=== PATIENT | female | born 1960 | race Caucasian/White ===

== ENCOUNTER → 2020-04-19 16:14 | Outpatient (CLI) | payer MEDICAID, SELFPAY ==
[2020-04-19 16:58] LABS: Basophils % 0.6 % (0.1-2.0); Eosinophils # 0.1 K/mm3 (0.0-0.4); Eosinophils % 1.4 % (0.1-12.0); Hemoglobin 14.7 g/dL (12.2-16.2); Lymphocytes # 2.4 K/mm3 (0.7-4.5); Lymphocytes % 32.9 % (10-50); Mean Corpuscular HGB Conc 32.6 g/dL (31.8-35.4); Mean Corpuscular Hemoglobin 33.6 pg (27.0-31.2); Mean Corpuscular Volume 103.3 fl (81-99); Mean Platelet Volume 8.8 fl (7.4-10.4); Monocytes # 0.3 K/mm3 (0.1-1.0); Monocytes % 4.3 % (1.7-9.3); Neutrophils # 4.5 K/mm3 (1.8-7.8); Neutrophils % 60.7 % (37.0-80.0); Platelet Count 297 K/mm3 (142-424); Red Blood Count 4.36 M/mm3 (4.20-5.40); Red Cell Distribution Width 13.7 % (11.5-17.5); White Blood Count 7.4 K/mm3 (4.8-10.8)
[2020-04-19 17:06] LABS: Alanine Aminotransferase 25 U/L (12-78); Albumin Level 4.4 g/dl (3.5-5.0); Albumin/Globulin Ratio 1.5 (1.1-1.8); Alkaline Phosphatase 70 U/L (38-126); Anion Gap 12.7 mEq/L (5-15); Aspartate Amino Transferase 34 U/L (14-36); Bilirubin,Total 0.6 mg/dl (0.2-1.3); Blood Urea Nitrogen 20 mg/dl (7-17); Calcium 9.6 mg/dl (8.4-10.2); Carbon Dioxide 24 mmol/L (22.0-30.0); Chloride 104 mmol/L (98-107); Chol/HDL Ratio 2.7 (1-3.5); Cholesterol 215 mg/dl (140-200); Estimated Glomerular Filt Rate 73 ml/min (>60); GFR (African American) 89 ML/MIN (>60); Globulin 2.9 g/dL (1.3-3.2); Glucose 94 mg/dl (74-100); HDL Cholesterol 79 mg/dl (40-60); Potassium 4.7 mmoL/L (3.5-5.1); Sodium 136 mmol/L (136-145); Total Protein,Serum 7.3 g/dl (6.3-8.2); Triglycerides 69 mg/dl (30-150); Uric Acid 5.3 mg/dl (2.5-6.2); VLDL Cholesterol 14 mg/dL (0-40)
[2020-04-19 17:13] LABS: 25-OH Vitamin D, Total 37.3 ng/mL (30-100)
[2020-04-19 17:17] LABS: C-Reactive Protein 1.1 mg/L (0-4); Direct LDL Cholesterol 111.66 mg/dL (100-129)
[2020-04-19 18:44] LABS: Erythrocyte Sedimentation Rate 13 mm/hr (0-30)
[2020-04-19 19:14] LABS: T4 (Thyroxine) 3.4 ug/dl (5.53-11.0)
[2020-04-21 14:17] LABS: Anti-Centromere B Antibodies <0.2 AI (0.0-0.9); Anti-Jo-1 <0.2 AI (0.0-0.9); Anti-Smith Antibody <0.2 AI (0.0-0.9); Antichromatin Antibodies <0.2 AI (0.0-0.9); Antiscleroderma-70 Antibodies <0.2 AI (0.0-0.9); RNP Antibodies <0.2 AI (0.0-0.9); Sjogren's Anti-SS-A <0.2 AI (0.0-0.9); Sjogren's Anti-SS-B <0.2 AI (0.0-0.9)
[2020-04-22 18:37] LABS: Anti-DNA (DS) Ab Qn 1 IU/mL (0-9); RA Latex Turbid. 37.5 IU/mL (0.0-13.9)
[2020-04-24 13:21] LABS: Antinuclear Antibodies, IFA Negative (.)
== END ==
PROVIDERS: Visit Provider Nurse Practitioner Family
DX: Z00.00 Encounter for general adult medical examination without abnormal findings (principal); M06.9 Rheumatoid arthritis, unspecified; R53.83 Other fatigue
CPT/HCPCS: 80053; 80061; 82306; 84436; 84443; 84550; 85025; 85651; 86038; 86140; 86225; 86235; 86431

== ENCOUNTER → 2020-05-05 12:50 | Outpatient (POV) | payer MEDICAID, SELFPAY ==
[2020-05-05 13:19] VITALS: BP 121/85; PULSE 92; RESP 18; O2SAT 98; BMI 25.7
--- NOTE | 2020-05-05 15:57 | HMH.PMCON ---
Assessment and Plan (1) Low back pain Status: Acute Category: Medical Code(s): M54.5 - Low back pain (2) Lumbar radiculopathy Status: Acute Category: Medical Code(s): M54.16 - Radiculopathy, lumbar region - Assessment and plan all Dx Assessment and Plan for all problems:: We will move forward with getting an MRI for the patient. I do believe she may be a candidate for interventional treatment however I do feel the need to review pathology prior to making that plan of care. I will follow-up with her after her MRI reassess her symptoms at that time she has been instructed to call the office if she has any issues prior to her next appointment. Dr. Reina has reviewed this note and agrees with this plan of care. This note was dictated using voice recognition software and may contain errors or omissions HPI - Data of Consult Consult date: 05/05/20 Requesting Physician: Alisia Ramon APRN Primary Care Provider: Christopher Fountain MD - Consult Narrative Reason for consult: Back pain History of present illness: Ms. Kirk is a 59 year old female who presents today for consultation regards to her low back and bilateral lower extremity pain. Patient states all activity increases it well nothing decreases it. Patient states she broke her back back in the 80s. Patient rates her pain an 8 out of 10. She has no recent imaging of her low back. She states that she has numbness in her legs. Patient has completed physical therapy with no long-term relief she is tried medication therapy with no relief. Patient and I discussed moving forward with diagnostic imaging she is agreeable. CC: Alisia Ramon APRN [facility] History I have reviewed the patient's past medical history: Yes Medical History: Denies:: Cancer, Diabetes Mellitus Type 1, Diabetes Mellitus Type 2, MRSA *Have you ever received a pneumonia vaccine?: Yes *Have you received a flu vaccine this season?: Yes Other Medical History: Reports: Arthritis, Thyroid Disease Amputation: No Fractures: No - *Social History Smoking Status: Never smoker Alcohol Intake: never Alcohol Intake Frequency:: holidays/special occasions only Substance Use Type: denies use *Occupational Status:: retired Housing: house Household Members: other *Travel in the last 8 weeks: None Family Hx:: Unable to obtain Review of Systems - Review of Systems ROS General: no recent weight change, no fever, no sleep disturbances Respiratory: no cough, no shortness of air, no recurring pulmonary infections Cardiovascular/Peripheral Vascular: No chest pain, No palpitations, no edema, no shortness of breath. Gastrointestinal: no new onset incontinence, normal bowel movements reported Genitourinary: no new onset incontinence Musculoskeletal: Back pain, leg pain Psychiatric: normal mood/ affect Neurological: [denies new onset weakness in extremities], [denies new onset balance issues] Meds Home Medications Medication Instructions Recorded Confirmed Type ibuprofen 200 mg capsule 800 mg PO TID PRN cap 04/19/20 04/19/20 History magnesium oxide 400 mg (241.3 mg 400 mg PO DAILY 04/19/20 04/19/20 History magnesium) tablet prednisolone sod phos 1 drp OPHTHALMIC 04/19/20 04/19/20 History %-moxifloxacin 0.5 %-bromfen 0.075 % eye drops levothyroxine 25 mcg capsule 25 mcg PO DAILY #30 cap 04/22/20 Rx Allergies Allergy/AdvReac Type Severity Reaction Status Date / Time No Known Allergies Allergy Verified 04/19/20 10:14 Objective Vital signs: Pulse Resp BP Pulse Ox 92 H 18 121/85 98 05/05/20 13:19 05/05/20 13:19 05/05/20 13:19 05/05/20 13:19 Narrative: Physical Exam General: Alert and oriented x3, no acute distress, pleasant and cooperative, [on room air] Lungs: Resps E/U, Symmetrical chest expansion, Eyes: PERRL Musculoskeletal: Flexion and extension of lumbar spine somewhat guarded secondary to pain, deep tendon refle
== END ==
PROVIDERS: PCP Emergency Medicine; Visit Provider Clinical Nurse Specialist Family Health
DX: M54.5 Low back pain (principal); M54.16 Radiculopathy, lumbar region
CPT/HCPCS: 99202; G0463

== ENCOUNTER 2020-05-05 14:04 | Outpatient (RCR) | payer MEDICAID, SELFPAY ==
--- NOTE | 2020-05-05 15:20 | HMH.PTOPEV ---
PT Outpatient Evaluation Rehab PT Outpatient Evaluation Start: 05/05/20 14:07 Freq: Status: Active Protocol: Document 05/05/20 15:01 AALIYAH (Rec: 05/05/20 15:20 AALIYAH [id number]) Electronically Signed By Jude Rodriguez, PT 05/05/20 15:01 Outpatient Therapy Subjective History Subjective History Patient is a 59 year old female presenting to outpatient PT with reports of sub-acute R shoulder pain as a result of a fall at work. Patient reports that she is scheduled to have an MRI soon. Symptom onset starting approximately 1.5 months ago. No recent imaging to report. Comorbidities include hx of hypothyroidism, lumbar spine fracture, B tibial fracutre and humeral fractures. Chief Complaint Pain,Stiff,Weakness Symptom Type Burning Symptoms Relieved By OTC Meds Symptoms Aggravated By Physical Activity,Lifting Prior Functional Limitations None Current Functional Limitations Reaching,Lifting,Housework, Sleeping Symptom Description Constant but Variable Level of pain today (0-10) 8 Pain scale - at its best (0-10) 5 Pain scale - at its worst (0-10) 9 Shoulder/Elbow Eval Shoulder Objective Measurements Palpation Tenderness Shoulder Palpation Findings Tenderness Shoulder Palpation Overall Comment R posterior cuff/ACJ 3/4 Posture Shoulder Posture Sitting Position (R) Rounded,(L) Forward Shoulder Posture Standing Position (R) Rounded,(L) Forward Scapula Posture Sitting Position (L) Protracted,(R) Protracted Scapular Posture Standing Position (L) Protracted,(R) Protracted Shoulder ROM Right Shoulder Abduction Passive Range of 149 Motion (degrees) Shoulder Flexion Passive Range of Motion 125 (degrees) Shoulder External Rotation Passive Range 85 of Motion (degrees) Shoulder Internal Rotation Passive Range 40 of Motion (degrees) Left full ROM shoulder exam standard left Shoulder MMT Right Shoulder Abduction Strength Grade 4- Good- Shoulder Extension Strength Grade 4- Good- Shoulder Flexion Strength Grade 4- Good- Shoulder External Rotation Strength 4- Good- Grade Shoulder Internal Rotation Strength 4- Good- Grade Elbow Objective Measurements Outpatient Therapy Assessment Impairments Problems/Impairmments Palpation Tenderness,Impaired Range of Motion,Impaired
== END 2020-05-05 14:10 | disposition home or self-care (01) ==
LOC: PT 14:04
PROVIDERS: PCP Nurse Practitioner Family; Visit Provider Nurse Practitioner Family
DX: M25.511 Pain in right shoulder (principal)
CPT/HCPCS: 97163

== ENCOUNTER → 2021-03-17 16:37 | Outpatient (CLI) | payer MEDICAID, SELFPAY ==
[2021-03-20 10:23] LABS: Adenovirus,PCR Not Detected (NotDetected); Bordetella Pertussis Not Detected (NotDetected); Chlamydophila Pneumoniae, PCR Not Detected (NotDetected); Coronavirus 229E Not Detected (NotDetected); Coronavirus NL63 Not Detected (NotDetected); Coronavirus OC43 Not Detected (NotDetected); Coronovirus HKU1,PCR Not Detected (NotDetected); Human Metapneumovirus Not Detected (NotDetected); Influenza A, PCR Not Detected (NotDetected); Influenza AH1, 2009 Not Detected (NotDetected); Influenza AH1, PCR Not Detected (NotDetected); Influenza AH3,PCR Not Detected (NotDetected); Influenza B, PCR Not Detected (NotDetected); Mycoplasma Pneumoniae, PCR Not Detected (NotDetected); Parainfluenza 1, PCR Not Detected (NotDetected); Parainfluenza 2, PCR Not Detected (NotDetected); Parainfluenza 3, PCR Not Detected (NotDetected); Parainfluenza 4, PCR Not Detected (NotDetected); Respiratory Syncytial Virus Not Detected (NotDetected); Rhinovirus/Enterovirus Not Detected (NotDetected)
[2021-03-20 12:01] LABS: Coronavirus 19, PCR Detected (NotDetected)
== END ==
PROVIDERS: Visit Provider Nurse Practitioner Family
DX: U07.1 COVID-19 (principal); R05.9 Cough, unspecified
CPT/HCPCS: 87581; 87632; 87798; C9803; U0003; U0005

== ENCOUNTER → 2021-05-18 13:19 | Outpatient (CLI) | payer MEDICAID, SELFPAY ==
--- NOTE | 2021-05-18 13:22 | MR_ITS ---
FINAL REPORT CLINICAL HISTORY: Ongoing neck pain, BUE numbness. POPPING IN NECK. BROKE BACK X30YRS AGO, NUMBNESS AND TINGLING. BACK SURGERY 28YRS AGO. FINDINGS: Multi planar MR imaging was obtained of the cervical spine. There is abnormal decreased signal throughout the cervical discs. There is moderate disc space narrowing at C5-6 and C6-7. The vertebrae are of normal height. There is no malalignment. The cervical cord demonstrates normal signal and configuration. C2-C3: There is no evidence of significant disc bulge or protrusion. There is no significant facet hypertrophy. C3-C4: Mild diffuse disc bulge is present with mild bilateral neural foraminal narrowing. C4-C5: Mild diffuse disc bulge is present with mild bilateral neural foraminal narrowing. C5-C6: Moderate diffuse disc bulge is present, slightly eccentric to the right. There is moderate right neural foraminal narrowing. There is mild to moderate compromise of the right side of the spinal canal. C6-C7: Moderate diffuse disc bulge is present. There is mild to moderate bilateral neural foraminal narrowing. C7-T1: Mild diffuse disc bulge is present with mild bilateral neural foraminal narrowing. IMPRESSION: Multilevel diffuse disc bulges, most evident at C5-6 with mild to moderate compromise of the right-sided spinal canal. Reviewed, Interpreted and Dictated by Teofilo Rivera MD Transcribed by Chantal Martin Authenticated by Teofilo Rivera MD on 05/18/2021 03:58:47 PM [facility]
== END ==
PROVIDERS: PCP Nurse Practitioner Family; Visit Provider Nurse Practitioner Family
DX: M54.2 Cervicalgia (principal)
CPT/HCPCS: 72141; 76376

== ENCOUNTER → 2021-07-31 10:52 | Outpatient (POV) | payer MEDICAID, SELFPAY ==
[2021-07-31 11:36] VITALS: BP 146/96; PULSE 86; RESP 18; TEMP 37.1; O2SAT 100; BMI 28.3
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
== END ==
PROVIDERS: Visit Provider Student in an Organized Health Care Education/Training Program
DX: M50.10 Cervical disc disorder with radiculopathy, unspecified cervical region (principal); M54.50 Low back pain, unspecified
CPT/HCPCS: 99202; G0463

== ENCOUNTER 2021-08-11 10:48 | Day surgery (SDC) | payer MEDICAID, SELFPAY ==
[2021-08-11 10:54] VITALS: BP 117/80; PULSE 85; RESP 20; TEMP 36.7; O2SAT 97; BMI 28.3
[2021-08-11 11:21] VITALS: BP 108/85; PULSE 80; RESP 20
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
[2021-08-11 11:34] VITALS: BP 139/88; PULSE 68; RESP 18; O2SAT 98
== END 2021-08-11 11:35 | disposition home or self-care (01) ==
LOC: SC.PAINP 10:48
PROVIDERS: PCP Nurse Practitioner Family; Visit Provider Nurse Anesthetist, Certified Registered
DX: M50.123 Cervical disc disorder at C6-C7 level with radiculopathy (principal); M48.02 Spinal stenosis, cervical region
CPT/HCPCS: 62320; J1040